=== PATIENT | female | born 1955 | race Caucasian/White ===

== ENCOUNTER 2018-05-01 13:29 | Emergency (ER) | payer BC, OTHER ==
--- NOTE | 2018-05-01 14:21 | CPEKG ---
Heart Rate: 82 RR Interval: 732 P-R Interval: 132 QRSD Interval: 90 QT Interval: 392 QTC Interval: 458 P [place]: 59 QRS [place]: 72 T Wave [place]: 57 EKG Severity - ABNORMAL ECG - EKG Impression: SINUS RHYTHM EKG Impression: CONSIDER LEFT VENTRICULAR HYPERTROPHY Electronically Signed By: Taylor Hernandez 01-May-2018 21:31:01
--- NOTE | 2018-05-01 14:24 | EDPHY ---
General - History Smoking Status: Never smoked Time Seen by Provider: 05/01/18 14:21 Narrative: CHIEF COMPLAINT: Fall, elbow pain, shoulder pain, loss of consciousness HISTORY OF PRESENT ILLNESS: Patient presents with complaints of right elbow and shoulder pain status post fall. She says she was trying to start a hike at 12:30 p.m.. She was attempting to get her dog of back car when she tripped and fell. She reports landing on, striking her right cheek, right elbow and right shoulder. She is not the consciousness but states that "everything went white for a minute." She report feeling lightheaded and dizzy. She did not have any chest pain or shortness of breath. She had no numbness, tingling or weakness anywhere. No unilateral complaints. She says that her drove her home, which is 5 min away. She attempted to walk into the kitchen and became very lightheaded. says he was standing next to her, and she lost consciousness. He reports lower in her to the ground and then she quickly woke up poorly feeling fine. She has mild headache. She has no chest pain or shortness of breath this time. She has moderate to severe pain in the right elbow, mild pain in the right shoulder. Abrasion of the right shoulder. No other associated complaints or modifying factors. Right-hand dominant REVIEW OF SYSTEMS: Ten systems reviewed and are negative unless otherwise noted in the HPI PCP: Dr. Laughlin SPECIALISTS: Dr. Rivera PAST MEDICAL HISTORY: Concussion 2015, osteoporosis PAST SURGICAL HISTORY: No surgical history SOCIAL HISTORY: Nonsmoker. Lives and works here independently with her spouse. Works as an senior trial attorney. FAMILY HISTORY: Noncontributory EXAMINATION General Appearance: Alert, no distress Head: normocephalic, atraumatic. No Johnson sign. No raccoon eyes. No outward signs of trauma other than superficial abrasion to the right cheek. Eyes: Pupils equal and round, no conjunctival pallor or injection ENT, Mouth: Mucous membranes moist Neck: Normal inspection, supple, non-tender. No crepitus or deformity Respiratory: Lungs are clear to auscultation Cardiovascular: Regular rate and rhythm. No murmur. Gastrointestinal: Abdomen is soft and nontender Back: non-tender, no bony abnormalities Neurological: GCS 15. A&O, nonfocal, normal gait. Strength is symmetric in lower extremities. Unable to test strength in the right upper extremity due to significant elbow shoulder pain Skin: Warm and dry, no rash. Superficial abrasion to the right cheek. Superficial abrasion of the right shoulder with small area of avulsion. No repairable lacerations. Extremities: Tenderness and swelling to the right elbow circumferentially. There is tenderness of the right shoulder. Range of motion of the shoulder is intact symmetrically. Unable to range the elbow fully due to pain. There is no tenderness of the wrist or snuffbox. Psychiatric: Mood and affect normal DIFFERENTIAL DIAGNOSES: Including but not limited to syncopal episode, vasovagal episode, with stasis, intracranial hemorrhage, concussion cardiac conduction, dehydration MDM: 2:30 p.m. Mechanical fall with closed head injury, right shoulder injury and right elbow injury. She also had a subsequent loss of consciousness moments later. At this time she is mildly lightheaded but has no chest pain, and she is in no acute distress but she does have fractures in the elbow that are closed. Shoulder x-ray is negative as read by me. 3:30 p.m. Point of care troponin is negative. Laboratory studies are within normal limits. Orthostatics are positive for a heart rate greater than 20 beats per minute changed from supine to standing. 4:00 p.m. Notified by radiologist Dr. Mao. No acute findings on the CT scan of the head. There is a normal variant noted as documented. 4:15 p.m. Patient re-evaluated. We discussed the CT scan findings. I have ordered ibuprofen for her pain that she is negative CT scan. She has already made an appoint with Dr. Whatley is on Sunday for her elbow fractures. She has received 1 L IV fluid is starting to feel better, but her heart rate still variable. We discussed further IV fluid resuscitation, attempted ambulation and then determine disposition at that time. 4:30 p.m. Patient has been evaluated by Dr. Hernandez. She recommends that the patient is stable for discharge home. We will provide a 2nd L of IV fluid resuscitation and then ambulating discharged home. Will also provide a disc of her images. She has follow up with Orthopedics on Sunday. She has ED precautions. We discussed ice, elevation, anti-inflammatories. I will also provide prescription for pain medication for her. She is comfortable this plan and she will be discharged home stable condition. SUPERVISION: Patient was independently examined, but I discussed the case with my primary supervising physician Dr. Hernandez. (Vick Herring) - Diagnostics EKG Interpretation: EKG interpreted by me reveals normal sinus rhythm, rate 82, LVH. Interpretation : Abnormal EKG (Taylor Hernandez) Discussion: This patient was seen and examined by me. She is in an Orthoglass sugar-tong splint. Distal circulation is adequate, capillary refill is brisk. Syncopal episode most likely vasovagal episode after forearm fracture. Her pain is well controlled and she is not feeling dizzy. She is able to walk with a steady gait and her will help her at home. She will follow up with Orthopedic surgery for the forearm fracture. (Taylor Hernandez) - Objective Vital Signs: Initial Vital Signs Temperature (C) 97.9 F 05/01/18 13:38 Heart Rate 74 05/01/18 13:38 Respiratory Rate 18 05/01/18 13:38 Blood Pressure 158/93 H 05/01/18 13:38 O2 Sat (%) 95 05/01/18 13:38 O2 Delivery Mode Room Air Allergies/Adverse Reactions: fluconazole [From Diflucan] Allergy (Verified 05/01/18 13:37) Home Medications: Medication Instructions Recorded Latanoprost 0.005% 05/01/18 ZYRTEC 05/01/18 traMADol [Ultram 50 mg (*)] 50 mg PO Q4 PRN #11 tab 05/01/18 Laboratory Results: Laboratory Results 05/01/18 15:04 05/01/18 15:04 Medications Given: Discontinued Medications Sodium Chloride (Ns) 1,000 mls @ 0 mls/hr IV EDNOW ONE; Wide Open PRN Reason: Protocol Stop: 05/01/18 14:59 Last Admin: 05/01/18 15:21 Dose: 1,000 mls Sodium Chloride (Ns) 1,000 mls @ 0 mls/hr IV EDNOW ONE; Wide Open PRN Reason: Protocol Stop: 05/01/18 15:47 Last Admin: 05/01/18 16:31 Dose: 1,000 mls Ibuprofen (Motrin) 600 mg PO EDNOW ONE Stop: 05/01/18 16:13 Last Admin: 05/01/18 16:31 Dose: 600 mg Point of Care Test Results: Chemistry 05/01/18 15:08 POC Troponin I 0.00 ng/mL ng/mL (0.00-0.08) Departure - Departure Disposition: Home, Routine, Self-Care Clinical Impression: Vasovagal syncope, Abrasion Radial head fracture, closed Qualifiers: Encounter type: initial encounter Fracture alignment: nondisplaced Laterality: right Qualified Code(s): S52.124A - Nondisplaced fracture of head of right radius, initial encounter for closed fracture Ulnar fracture Qualifiers: Encounter type: initial encounter Ulna location: proximal ulna Fracture type: closed Fracture morphology: unspecified fracture morphology Laterality: right Qualified Code(s): S52.001A - Unspecified fracture of upper end of right ulna, initial encounter for closed fracture Head injury Qualifiers: Encounter type: initial encounter Qualified Code(s): S09.90XA - Unspecified injury of head, initial encounter Condition: Good Instructions: Elbow Fracture (ED), Syncope (ED), Head Injury (ED) Additional Instructions: 1. Follow up with Orthopedics for definitive care of the elbow injury and shoulder pain 2. Follow up with concussion specialist 3. Continue to increase her water intake 4. ED precautions for any chest pain, recurrent syncope or loss of consciousness 5. Pain medication as prescribed as needed Referrals: Irina England MD [Primary Care Provider] - As per Instructions Pancho Whatley MD [Medical Doctor] - As per Instructions Pancho Dinh MD [Medical Doctor] - As per Instructions Maggy Rivera MD [Medical Doctor] - As per Instructions Prescriptions: traMADol [Ultram 50 mg (*)] 50 mg PO Q4 PRN #11 tab PRN Reason: Pain, Mild
[2018-05-01] MEDS ORDERED: NS 1,000 ML IV ONE ×2 (14:58→15:46)
[2018-05-01 15:19] LABS: PLATELET COUNT 200 10^3/uL (150-400)
[2018-05-01] MEDS ORDERED: IBUPROFEN 600 MG TAB PO ONE (16:12)
[2018-05-01 17:59] VITALS: BP 146/73
== END 2018-05-01 18:16 | disposition home or self-care (01) ==
DX: S52.124A Nondisplaced fracture of head of right radius, initial encounter for closed fracture (principal); S52.001A Unspecified fracture of upper end of right ulna, initial encounter for closed fracture; S09.90XA Unspecified injury of head, initial encounter; S40.211A Abrasion of right shoulder, initial encounter; R55 Syncope and collapse; E86.9 Volume depletion, unspecified; W01.198A Fall on same level from slipping, tripping and stumbling with subsequent striking against other object, initial encounter; Y92.810 Car as the place of occurrence of the external cause; Y99.8 Other external cause status; Y93.89 Activity, other specified
CPT/HCPCS: 84484-PO

== ENCOUNTER → 2018-05-07 | Outpatient (CLI) | payer OTHER | LOC: FIMAGING 15:38 | PROVIDERS: ATTEND Orthopaedic Surgery Hand Surgery | DX: S52.124A Nondisplaced fracture of head of right radius, initial encounter for closed fracture (principal); M24.021 Loose body in right elbow ==

== ENCOUNTER → 2018-09-11 | Outpatient (CLI) | payer OTHER | LOC: FIMAGING 12:59 | PROVIDERS: ATTEND Family Medicine | DX: Z12.31 Encounter for screening mammogram for malignant neoplasm of breast (principal) ==